=== PATIENT | male | born 1980 | race Caucasian/White ===

== ENCOUNTER → 2016-07-15 | Outpatient (CLI) | payer BC, OTHER | LOC: GMAB 10:32 | PROVIDERS: ATTEND Family Medicine | DX: Z00.00 Encounter for general adult medical examination without abnormal findings (principal); R94.5 Abnormal results of liver function studies ==

== ENCOUNTER → 2016-08-06 | Outpatient (CLI) | payer OTHER | END | disposition home or self-care (01) | LOC: GMAB 11:05 | PROVIDERS: ATTEND Family Medicine | DX: E29.1 Testicular hypofunction (principal) ==

== ENCOUNTER → 2019-03-24 | Outpatient (CLI) | payer OTHER ==
--- NOTE | 2019-03-25 13:20 | US ---
EXAM DESCRIPTION: Abdomen,Complete: Ultrasound. CLINICAL HISTORY: RLQ PAIN COMPARISON: None Available. TECHNIQUE: Transabdominal scanning: grayscale and Doppler modes. FINDINGS: Gallbladder: Normal size and echogenicity with no intraluminal stones or sludge. Wall thickness 2.3 mm is normal with no fluid. Nontender with transducer pressure. Common bile duct: Normal caliber 4.6 mm. Liver: 16.4 cm long axis right lobe. No focal lesions. Normal physiology of the vascular flow and normal caliber ducts. Smooth capsule with no ascites.. Pancreas: Normal echogenicity and size. Duct not seen.. Abdominal aorta: Normal caliber from the proximal segment to the distal bifurcation. IVC: visualized; normal caliber. Spleen normal echogenicity; long axis measurement is 11.5 cm. Right kidney: 11.5 centimeters long axis. Normal cortical thickness and echogenicity. No echogenic stones or hydronephrosis. Left kidney: 11.3 cm long axis. Normal cortical thickness and echogenicity. No echogenic stones or hydronephrosis. No dominant solid mass or fluid collection in the right lower quadrant area of tenderness. Appendix not seen. IMPRESSION: Sonography of the upper quadrants of the abdomen, except for fatty liver and borderline hepatomegaly. No ascites. The stomach was not scanned. No dominant solid mass or distinct fluid collection in the right lower quadrant. Appendix not seen. Electronically signed by: Og Card MD 03/25/2019 1:18 PM [employer]
== END ==
LOC: US 07:36
PROVIDERS: ATTEND Nurse Practitioner Family
DX: R10.31 Right lower quadrant pain (principal); K76.0 Fatty (change of) liver, not elsewhere classified

== ENCOUNTER → 2019-03-31 | Outpatient (CLI) | payer OTHER ==
--- NOTE | 2019-03-31 08:56 | CT ---
EXAM DESCRIPTION: CT ABDOMEN AND PELVIS WITH CONTRAST CLINICAL HISTORY: RIGHT LOWER QUADRANT PAIN COMPARISON: Ultrasound abdomen March 24, 2019 TECHNIQUE: CT of the abdomen and pelvis are performed during IV bolus administration of routine adult dose of nonionic iodinated IV contrast. No oral contrast. FINDINGS: In the lower chest, the lung bases are clear. Heart size is normal. CT abdomen The liver, spleen, pancreas, gallbladder, adrenal glands, stomach and kidneys are normal in appearance. No inflammation around the pancreas. No renal stones or hydronephrosis. No bowel dilatation to suggest obstruction. No free air or free fluid. CT pelvis Appendix is small with no surrounding inflammation. No inflammation around the cecum or terminal ileum or sigmoid colon. Bladder and distal ureters are negative for stones. Normal enhancement of pelvic vessels. No inguinal or lower pelvic adenopathy. Normal appearance of the prostate and seminal vesicles. Bone window images are negative for fracture or lytic lesion. Coronal and sagittal reformatted images confirm the findings. IMPRESSION: No acute upper abdominal process. No acute process in the pelvis. This exam was performed according to our departmental dose-optimization program, which includes automated exposure control, adjustment of the mA and/or kV according to patient size and/or use of iterative reconstruction technique. Total DLP equals 1049.4 mGycm. Electronically signed by: Alejandro Isaac MD 03/31/2019 8:55 AM [employer]
== END ==
LOC: CT 08:13
PROVIDERS: ATTEND Nurse Practitioner Family
DX: R10.31 Right lower quadrant pain (principal)